=== PATIENT | male | born 2000 | race Caucasian/White ===

== ENCOUNTER 2020-06-03 16:46 | Emergency (ER) | payer OTHER ==
[~2020-06-03] VITALS: Ht 177.8 cm; Wt 72.6 kg
== END 2020-06-03 19:00 | disposition home or self-care (01) ==
LOC: ER 16:46 → EMR PED 17:06 → ER 17:06 → EMR PED 19:00
DX: M25.531 Pain in right wrist (principal)

== ENCOUNTER 2024-03-15 18:06 | Emergency (ER) | payer OTHER ==
[~2024-03-15] VITALS: Ht 177.8 cm; Wt 74.8 kg
[2024-03-15] MEDS ORDERED: IBUprofen 100 MG/5 ML-120ML ML PO STA (19:14)
[2024-03-15] MEDS ORDERED: GUAIFENESIN 200 MG/10 ML BLIST.PACK PO STA (19:15)
[2024-03-15 19:40] LABS: HEMOGLOBIN 13.1 g/dL (13-16.00); MEAN CELL VOLUME 88.2 fL (80.0-100.00); MEAN CORPUSCULAR HEMOGLOBIN 30.3 pg (27.00-32.0); MEAN CORPUSCULAR HGB CONC 34.4 g/dl (32.0-36.0); PLATELET COUNT 187 K/uL (150-450); RED BLOOD COUNT 4.31 M/uL (4.00-6.00); RED CELL DISTRIBUTION WIDTH 12.7 % (11.5-14.5)
[2024-03-15] MEDS ORDERED: KETOROLAC TROMETHAMINE 30 MG VIAL IM STA (20:10)
== END 2024-03-15 20:30 | disposition home or self-care (01) ==
LOC: ER 18:07
PROVIDERS: General Practice
DX: R53.81 Other malaise (principal); J10.1 Influenza due to other identified influenza virus with other respiratory manifestations; Z20.822 Contact with and (suspected) exposure to COVID-19

== ENCOUNTER → 2024-06-17 | Emergency (ER) | payer OTHER ==
[~2024-06-17] VITALS: Ht 167.6 cm; Wt 65.8 kg
[~2024-06-17] MED LIST: METHYLPREDNISOLONE SOD SUCC 125 MG VIAL ONE
== END | disposition left against medical advice (07) ==
LOC: ER 17:33
DX: Z53.21 Procedure and treatment not carried out due to patient leaving prior to being seen by health care provider (principal)